=== PATIENT | female | born 1945 | race Caucasian/White ===

== ENCOUNTER → 2017-03-14 | Outpatient (CLI) | payer MEDICARE, BC ==
--- NOTE | 2017-03-14 15:33 | KCIC ---
3 view right foot HISTORY: Chronic right heel pain. No comparison Generalized bone demineralization. No evidence of an acute fracture or focal aggressive bone destruction. Alignment and soft tissues are intact. Small plantar calcaneal spur. No evidence of acute fracture or dislocation. IMPRESSION: No acute fracture or dislocation. Electronically signed by: Breezy Juares MD (03/14/2017 3:30 PM) [id number]
== END | disposition home or self-care (01) ==
LOC: KCIC 14:43
PROVIDERS: ATTEND Internal Medicine
DX: M79.671 Pain in right foot (principal); G89.29 Other chronic pain
CPT/HCPCS: 73630